=== PATIENT | female | born 1960 | race Caucasian/White ===

== ENCOUNTER 2017-06-23 07:54 | Inpatient (IN) | payer MEDICAID ==
[~2017-06-23 07:54] MED LIST: MORPHINE SULFATE 15 MG TABLET.SA PO PRN; RINGER'S SOLUTION,LACTATED 1,000 ML IV PRN; ROPIVACAINE HCL/PF 100 MG, EPINEPHrine 0.2 MG, KETOROLAC TROMETHAMINE 30 MG in NORMAL S... IJ PRN; TRANEXAMIC ACID 1,000 MG in NORMAL SALINE 100 ML IV PRN; ceFAZolin SODIUM 1 GM VIAL IV PRN
--- NOTE | 2017-06-23 09:56 | PREOP NOTE ---
Preoperative Progress Note - Preoperative Changes Changes to Preop Condition?: No Changes
[2017-06-23] MEDS ORDERED: RINGER'S SOLUTION,LACTATED 1,000 ML IV ONE ×3 (10:10→11:58)
[2017-06-23] MEDS ORDERED: ONDANSETRON HCL/PF 2 MG/ML VIAL IV PRN (12:01)
[2017-06-23] MEDS ORDERED: ZOLPIDEM TARTRATE 5 MG TABLET PO PRN (12:01)
[2017-06-23] MEDS ORDERED: MAGNESIUM HYDROXIDE 30 ML UDC PO PRN (12:01)
[2017-06-23] MEDS ORDERED: HYDROmorphone HCL 1 MG/ML DISP.SYRIN IV PRN (12:01)
[2017-06-23] MEDS ORDERED: MAG HYDROX/ALUMINUM HYD/SIMETH 30 ML UDC PO PRN (12:01)
[2017-06-23] MEDS ORDERED: PROMETHAZINE HCL 5 MG in DEXTROSE 5 % IN WATER 50 ML IV PRN ×2 (12:01)
[2017-06-23] MEDS ORDERED: diphenhydrAMINE HCL 50 MG/ML VIAL IV PRN (12:01)
[2017-06-23] MEDS ORDERED: ALBUTEROL SULFATE 2.5 MG/0.5 ML VIAL.NEB IH PRN (12:03)
[2017-06-23] MEDS ORDERED: hydrOXYzine PAMOATE 25 MG CAPSULE PO PRN (12:03)
--- NOTE | 2017-06-23 12:06 | OR ---
Operative Report - Dictated Report Narrative: Date: 06/23/2017 Preoperative diagnosis: Right Knee degenerative joint disease. Postoperative diagnosis: Right Knee degenerative joint disease. Procedure: Right Total knee arthroplasty. Surgeon: Viral Mays M.D. Plant Operations Worker: Franco Ridley PA-C Anesthesia: Spinal with regional block and local periarticular joint injection. Complications: None Specimens: Bone for disposal. Estimated blood loss: Minimal. Tourniquet time: 68 Minutes at 325 millimeters of mercury. Retained implants: Depuy Attune size 5 narrow right lugged cemented posterior stabilized femoral component. Size 5 fixed-bearing cemented tibial platform. 5 by 7 millimeter posterior stabilized cross-linked tibial insert. 35 millimeter medialized patella button. Indications: Mrs. Bee is a 57-year-old female who has had long-standing right knee pain. She previously underwent left total knee arthroplasty and did well. This patient was followed in my clinic for period of time with significant complaints of right knee pain consistent with arthritic changes. She had failed conservative measures including, but not limited to, activity modification, passage of time, medications, and other conservative measures. Patient wished to proceed with surgical treatment. The risks, benefits, and alternatives were discussed in clinic. The risks of , blood clots, bleeding, infection, nerve/tendon blood vessel/ injury, malposition of components, intraoperative fracture, postoperative limited range of motion, persistent pain, failure of components, and need for additional procedures. Patient wished to proceed consent was obtained after answering all questions. Procedure: After marking the correct extremity on the floor, the patient was taken to the operating room. A timeout was performed. IV antibiotics consisting of Ancef were administered prior to the procedure. A regional followed by spinal anesthetic was induced by anesthesia, per my request, on the operative table with all bony prominences well-padded. Leyva catheter was placed, and a bump was placed under the operative side buttock. SCDs and PACO hose were utilized on the nonoperative leg. A well-padded tourniquet was applied to the operative thigh. The operative leg was then pre-scrubbed with alcoho,l prepped, and draped in a standard sterile fashion. After exsanguinating the extremity with an Esmarch bandage, the tourniquet was inflated. After marking out the anterior knee for standard incision centered over the patella, the skin was incised and dissected down to the joint retinaculum. The joint retinaculum was marked out as well as the horizontal axis of the patella, and a standard medial parapatellar arthrotomy was then made. The most proximal aspect of the quadriceps tendon and the patella tendon insertion were protected from release. A partial synovectomy was performed as well as a resection of the infrapatellar fat pad. The distal femoral fat pad proximal to the trochlea was also resected using cautery. The soft tissues were elevated off the medial aspect of the proximal tibia using a Cotter elevator ensuring that we did not transect the medial collateral ligament. Upon initial evaluation range of motion was approximately 10 degrees to 130 degrees of flexion. There were signs of advanced arthrosis in the medial and patellofemoral joint spaces. There were large marginal osteophytes which were removed with a rongeur. The knee was hyperflexed and the patella was tucked laterally. Protecting the surrounding soft tissues with Homans, an entry drill was placed down the femoral canal using Whitesides line for guidance into the entry point. The intramedullary femoral alignment mariana was utilized in order to cut the distal femur in 5 degrees of valgus resecting 10 millimeters of bone. Next the distal femur was sized to a size 5 narrow. A posterior referencing guide was utilized to place the distal femoral cutting block in 3 degrees of external rotation. This was pinned into place. The rotation was confirmed both visually and based on anatomic landmarks. The 4 in 1 cutting jig of the appropriate size was utilized in order to make all bony cuts. The angle wing was used to ensure no notching. Retractors were utilized in order to protect surrounding soft tissues. This cut did not result in any excessive notching. We then cut the box centered over the distal femur. This allowed for resection of the anterior and posterior cruciate ligaments. I then turned my attention to the preparation of the tibia. Using an extra medullary tibial alignment mariana, 2 millimeters of bone was resected off the medial articular surface. This was made perpendicular to the mechanical axis of the joint with the alignment mariana centered over the ankle mortise. The alignment mariana was checked and was noted to be parallel to the mechanical axis, centered over the medial one third of the tibial tubercle, paralleling the anterior surface of the tibia. We then turned our attention to the remaining meniscus and soft tissues. These were removed while protecting the surrounding ligaments and soft tissues. The marginal osteophytes off the anterior, posterior, medial, lateral aspects of the femur and tibia were removed. The tibia was sized out to a size 5. Next the tibia was drilled and punched in an externally rotated position. Next the trial femur and a series of tibial inserts were utilized in order to allow for full extension and maximal flexion. It was found that a 7 millimeter insert gave the best range of motion and stability at multiple flexion points as well as at full extension there was less than 2 mm of gapping both medially and laterally. There is minimal anterior translation with the knee at 90 degrees of flexion and no signs of being able to dislocate the knee. The patella was then prepared. The initial thickness was 20 millimeters. This was reamed down to 11 millimeters parallel to the anterior surface of the patella. It was sized out to a size 35 medialized patella button. This was then drilled and trialed. Without any medial restraint the patella tracked appropriately and did not sublux or dislocate. At this point, it was felt these were the appropriate sized implants, and all trials were removed. The standard periarticular joint injection consisting of ropivacaine, Toradol, and epinephrine were injected into the periarticular joint tissues. The bony surfaces were thoroughly irrigated with a pulsatile- suction saline irrigation device. A bone plug from the prior resected anterior chamfer cut was placed into the drill hole at the distal femur. The bony surfaces were then dried in preparation for placement of the implants. The cement was vacuum mixed per the case consultant's instructions. The cement was placed on the dry bony surfaces and posterior aspect of the implants. The implants were impacted into place, removing all extruded cement. At this point anesthesia administered tranexamic acid per protocol intravenously. The knee was placed in extension with axial loading with the trial insert while the cement cured. Once the cement cured, all remaining extruded cement was removed. The knee was placed through a range of motion with the trial insert to ensure appropriate range of motion and stability. Final range of motion was approximately 0 to 130 degrees. The knee was again thoroughly irrigated with pulsatile saline lavage. The final polyethylene insert was then impacted into place ensuring no retained soft tissues. The remaining periarticular joint injection was injected. A medium Hemovac drain was placed exiting superior laterally. The knee was then placed over a triangle and the arthrotomy was closed with interrupted #1 Vicryl after thoroughly irrigating the joint. The deep and subcutaneous tissues were closed with interrupted 0 and 3-0 Vicryl respectively. Skin was closed with a running subcutaneous 3-0 Monocryl and Prineo Dermabond dressing. 4 x 4's, Sof-Rol, and a full leg Angel wrap were applied. All sponge, needle, blade, and instrument counts were correct prior to closing the wounds. Postoperative condition: The patient was awoken and transferred to the postanesthesia care unit in stable condition. Plan is to be admitted to the inpatient medical/surgical floor postoperatively for 24 hours of IV antibiotics , physical therapy, occupational therapy, and medical comanagement. Patient will be weightbearing as tolerated with range of motion as tolerated. DVT prophylaxis will be with SCDs, PACO hose, and pharmacological anticoagulation. Anticipated hospital stay is approximately 2-4 days.
[2017-06-23] MEDS: RINGER'S SOLUTION,LACTATED 1,000 ML IV PRN ×2 (12:59→19:00)
[2017-06-23] MEDS: KETOROLAC TROMETHAMINE 15 MG/ML VIAL IV SCH ×2 (13:13→19:02)
[2017-06-23] MEDS: GABAPENTIN 300 MG CAPSULE PO SCH ×2 (13:18→20:55)
[2017-06-23] MEDS: ceFAZolin SODIUM 1 GM in DEXTROSE 5 % IN WATER 100 ML IV SCH ×4 (15:08→21:01)
[2017-06-23] MEDS: oxyCODONE HCL 5 MG TABLET PO PRN (16:51)
[2017-06-23] MEDS: FLUTICASONE/SALMETEROL 14 PUFF DISK.W.DEV IH SCH (20:54)
[2017-06-23] MEDS: MORPHINE SULFATE 15 MG TABLET.SA PO SCH (20:55)
[2017-06-23] MEDS: OXYBUTYNIN CHLORIDE 5 MG TABLET PO SCH (20:56)
[2017-06-23] MEDS: SENNOSIDES/DOCUSATE SODIUM 1 TAB TABLET PO SCH (20:56)
[2017-06-23] MEDS: METOPROLOL TARTRATE 50 MG TABLET PO SCH (20:56)
[2017-06-23] MEDS: busPIRone HCL 5 MG TABLET PO SCH (20:57)
[2017-06-23] MEDS: QUEtiapine FUMARATE 100 MG, QUEtiapine FUMARATE 50 MG PO SCH ×2 (20:57)
[2017-06-23] MEDS: LISINOPRIL 20 MG TABLET PO SCH (20:58)
[2017-06-23] MEDS ORDERED: QUEtiapine FUMARATE 100 MG TABLET PO SCH (21:00)
[2017-06-24] MEDS: RINGER'S SOLUTION,LACTATED 1,000 ML IV PRN (02:05)
[2017-06-24] MEDS: KETOROLAC TROMETHAMINE 15 MG/ML VIAL IV SCH ×4 (02:06→19:00)
[2017-06-24] MEDS: ceFAZolin SODIUM 1 GM in DEXTROSE 5 % IN WATER 100 ML IV SCH ×2 (04:58)
[2017-06-24 06:02] LABS: Hematocrit 35.4 % (37.0-47.0); Hemoglobin 11.8 gm/dL (12.5-16.0); Mean Cell Volume 96.5 fl (78-100); Mean Corpuscular Hemoglobin 32.2 pg (27-31); Mean Corpuscular Hgb Conc 33.3 g/dl (32-36); Mean Platelet Volume 9.5 fl (6.0-9.5); Platelet Count 129 K/mm3 (150-450); Red Blood Count 3.67 M/mm3 (4.2-5.4); Red Cell Distribution Width 13.8 % (11.5-14.0); White Blood Count 7.3 K/mm3 (4.0-10.5)
[2017-06-24 06:14] LABS: Anion Gap 10.7 mmol/L (6.8-13.8); BUN/Creatinine Ratio 21.7 (9.0-21.6); Calcium * 8.8 mg/dL (7.9-10.9); Carbon Dioxide 29.1 mmol/L (24-32.6); Estimated Creat Clear 86.2; Potassium 3.8 mmol/L (3.4-4.6)
[2017-06-24] MEDS: PANTOPRAZOLE SODIUM 20 MG TABLET.DR PO SCH (07:10)
[2017-06-24] MEDS: GABAPENTIN 300 MG CAPSULE PO SCH ×3 (07:10→20:52)
[2017-06-24] MEDS: LEVOTHYROXINE SODIUM 50 MCG TABLET PO SCH (07:11)
--- NOTE | 2017-06-24 07:18 | OR ---
Anesthesia Procedure Note - Anesthesia Procedure Note Narrative: Vital Signs - Last Taken Temp 36.5 C 06/23/17 22:23 Pulse 61 06/24/17 02:45 Resp 16 06/24/17 02:45 BP 121/84 06/24/17 02:45 Pulse Ox 97 06/24/17 02:45 O2 Oxygen Delivery Method Nasal Cannula 06/24/17 07:14 ANESTHESIA PROCEDURE NOTE Date of procedure: 06/23/2017. Time of procedure: 1020. Performed by: Naldo Jacome CRNA Textile Designer: Brittany Baca RN . Preprocedure diagnosis: Postoperative analgesia. Right total knee arthroplasty. Right knee DJD. Post procedure diagnosis: Same. Procedure: Right ultrasound-guided femoral nerve block. Indications: Postoperative analgesia. Findings: Patient placed in a supine position. Right femoral area prepped with ChloraPrep. Right femoral nerve identified with ultrasound and a nerve stimulator. 22-gauge 2 inch Stimuplex regional block needle was used to inject a total of 30 mL of 0.25% Marcaine with epinephrine 1 200,000 around the right femoral nerve. Images retained in radiology database. Regional block needle was removed intact. EBL: Minimal. Fluids: N/A. Specimen: N/A. Post procedure condition: The patient tolerated the procedure well. No complications were noted. Thank you for this consultation Naldo Jacome CRNA
[2017-06-24] MEDS: oxyCODONE HCL 5 MG TABLET PO PRN ×2 (07:21→11:22)
--- NOTE | 2017-06-24 07:56 | PN ---
Subjective - Date and Time Seen Date: 06/24/17 Time: 07:55 Subjective Narrative: Subjective: Reports no concerns. Was able to get to the chair with therapy. Pain is well-controlled. Voiding without any complications. Tolerating by mouth intake. Denies any nausea or vomiting. Denies calf pain. Slept well. Physical exam: Alert and oriented to person, place and time Right lower Extremity: Palpable dorsalis pedis pulse. Sensation grossly intact to light touch. Dressings clean and dry. Able to flex and extend ankle and toes. No excessive drainage. Calf and thigh are soft and nontender. Assessment: Postop day 1 status post right total knee arthroplasty. Plan: Continue with physical and occupational therapy weightbearing as tolerated. Continue with anticoagulation. 24 hours postoperative prophylactic antibiotics. Pain control with goal to rely on oral medications. Continue bowel regimen. Will need 6 weeks with walker or assitive device to protect joint while ambulating during the recovery process. Discharge planning. Discontinue drain and Leyva catheter. Repeat labs in a.m. Objective - Vitals Vitals: Last Vital Signs Temp 37 C 06/24/17 07:49 Pulse 68 06/24/17 07:49 Resp 20 06/24/17 07:49 BP 126/86 06/24/17 07:49 Pulse Ox 98 06/24/17 07:49 - Abnormal Lab Findings Abnormal Lab Findings: Abnormal Lab Results 06/24/17 06/24/17 Range/Units 05:40 05:40 RBC 3.67 L (4.2-5.4) M/mm3 Hgb 11.8 L (12.5-16.0) gm/dL Hct 35.4 L (37.0-47.0) % MCH 32.2 H (27-31) pg Plt Count 129 L (150-450) K/mm3 BUN/Creatinine Ratio 21.7 H (9.0-21.6) Random Glucose 168 H (70-110) mg/dL Cauti Physician Documentation - Urinary Catheter Management Uretheral (Leyva) Date of Insertion: 06/23/17 Time of Insertion: 10:35 Date of Removal: 06/24/17 Time of Removal: 07:24 Assessment/Plan - Problems/Diagnosis (1) Acute blood loss anemia Problem: Acute (2) Hypoxemia Problem: Acute (3) S/P total knee arthroplasty Problem: Acute Qualifiers: Laterality: right Qualified Code(s): Z96.651 - Presence of right artificial knee joint (4) COPD (chronic obstructive pulmonary disease) Problem: Chronic (5) Hypertension Problem: Chronic (6) Tobacco abuse Problem: Chronic (7) Anxiety Problem: Chronic (8) Bipolar 1 disorder Problem: Chronic (9) Hepatitis C Problem: Chronic
[2017-06-24] MEDS: FLUTICASONE/SALMETEROL 14 PUFF DISK.W.DEV IH SCH ×2 (09:09→20:50)
[2017-06-24] MEDS: LISINOPRIL 20 MG TABLET PO SCH ×2 (09:14→20:55)
[2017-06-24] MEDS: MORPHINE SULFATE 15 MG TABLET.SA PO SCH ×2 (09:14→20:51)
[2017-06-24] MEDS: busPIRone HCL 5 MG TABLET PO SCH ×2 (09:14→20:53)
[2017-06-24] MEDS: amLODIPine BESYLATE 5 MG TABLET PO SCH (09:14)
[2017-06-24] MEDS: PRENATAL VITS96/IRON FUM/FOLIC 1 TAB TABLET PO SCH (09:14)
[2017-06-24] MEDS: THIAMINE HCL 100 MG TABLET PO SCH (09:14)
[2017-06-24] MEDS: METOPROLOL TARTRATE 50 MG TABLET PO SCH ×2 (09:15→20:56)
[2017-06-24] MEDS: FLUoxetine HCL 20 MG CAPSULE PO SCH (09:15)
[2017-06-24] MEDS: OXYBUTYNIN CHLORIDE 5 MG TABLET PO SCH ×2 (09:15→20:53)
[2017-06-24] MEDS: ENOXAPARIN SODIUM 40 MG/0.4 ML SYRG SC SCH (11:06)
[2017-06-24] MEDS: SENNOSIDES/DOCUSATE SODIUM 1 TAB TABLET PO SCH (20:52)
[2017-06-24] MEDS: QUEtiapine FUMARATE 100 MG, QUEtiapine FUMARATE 50 MG PO SCH ×2 (20:54)
[2017-06-24] MEDS ORDERED: NORMAL SALINE 500 ML IV ONE (22:30)
[2017-06-25] MEDS: KETOROLAC TROMETHAMINE 15 MG/ML VIAL IV SCH ×2 (01:26→06:42)
[2017-06-25 06:27] LABS: Hematocrit 30.1 % (37.0-47.0); Hemoglobin 9.9 gm/dL (12.5-16.0); Mean Corpuscular Hemoglobin 32.2 pg (27-31); Mean Corpuscular Hgb Conc 32.9 g/dl (32-36); Mean Platelet Volume 10.2 fl (6.0-9.5); Platelet Count 109 K/mm3 (150-450); Red Blood Count 3.07 M/mm3 (4.2-5.4); Red Cell Distribution Width 13.6 % (11.5-14.0); White Blood Count 7.5 K/mm3 (4.0-10.5)
[2017-06-25 06:30] LABS: Anion Gap 9.6 mmol/L (6.8-13.8); Calcium * 8.7 mg/dL (7.9-10.9); Potassium 3.6 mmol/L (3.4-4.6)
[2017-06-25] MEDS: GABAPENTIN 300 MG CAPSULE PO SCH ×4 (06:42→22:56)
[2017-06-25] MEDS: PANTOPRAZOLE SODIUM 20 MG TABLET.DR PO SCH (06:42)
[2017-06-25] MEDS: LEVOTHYROXINE SODIUM 50 MCG TABLET PO SCH (06:42)
[2017-06-25] MEDS: FLUTICASONE/SALMETEROL 14 PUFF DISK.W.DEV IH SCH ×3 (08:58→23:01)
[2017-06-25] MEDS: busPIRone HCL 5 MG TABLET PO SCH ×3 (08:58→22:56)
[2017-06-25] MEDS: METOPROLOL TARTRATE 50 MG TABLET PO SCH ×3 (08:58→22:58)
[2017-06-25] MEDS: OXYBUTYNIN CHLORIDE 5 MG TABLET PO SCH ×3 (08:58→23:05)
[2017-06-25] MEDS: LISINOPRIL 20 MG TABLET PO SCH (08:59)
[2017-06-25] MEDS: THIAMINE HCL 100 MG TABLET PO SCH (08:59)
[2017-06-25] MEDS: amLODIPine BESYLATE 5 MG TABLET PO SCH (08:59)
[2017-06-25] MEDS: PRENATAL VITS96/IRON FUM/FOLIC 1 TAB TABLET PO SCH (08:59)
[2017-06-25] MEDS: FLUoxetine HCL 20 MG CAPSULE PO SCH (08:59)
[2017-06-25] MEDS: MORPHINE SULFATE 15 MG TABLET.SA PO SCH ×3 (08:59→22:54)
--- NOTE | 2017-06-25 09:25 | PN ---
Subjective - Date and Time Seen Date: 06/25/17 Time: 09:21 Subjective Narrative: Subjective: Reports increased pain and difficulty voiding last PM. Was able to walk in the cadet with therapy. Required straight cath x 1 last night. Tolerating by mouth intake. Denies any nausea or vomiting. Denies calf pain. Physical exam: Alert and oriented to person, place and time Right lower Extremity: Dressings clean and dry. Able to flex and extend ankle and toes. No excessive drainage. Calf and thigh are soft and nontender. Assessment: Postop day 2 status post right total knee arthroplasty. Plan: Continue with physical and occupational therapy weightbearing as tolerated. Continue with anticoagulation. Encourage fluids. Pain control with goal to rely on oral medications. Continue bowel regimen. Will need 6 weeks with walker or assitive device to protect joint while ambulating during the recovery process. Discharge planning. Repeat labs in a.m. Objective - Vitals Vitals: Last Vital Signs Temp 36.9 C 06/25/17 06:25 Pulse 87 06/25/17 08:59 Resp 18 06/25/17 06:25 BP 99/66 06/25/17 08:59 Pulse Ox 91 06/25/17 06:25 - Abnormal Lab Findings Abnormal Lab Findings: Abnormal Lab Results 06/25/17 06/25/17 Range/Units 06:08 06:08 RBC 3.07 L (4.2-5.4) M/mm3 Hgb 9.9 L (12.5-16.0) gm/dL Hct 30.1 L (37.0-47.0) % MCH 32.2 H (27-31) pg Plt Count 109 L (150-450) K/mm3 MPV 10.2 H (6.0-9.5) fl BUN 25 H D (3-23) mg/dL BUN/Creatinine Ratio 26.0 H (9.0-21.6) Cauti Physician Documentation - Urinary Catheter Management Uretheral (Leyva) Date of Insertion: 06/23/17 Time of Insertion: 10:35 Date of Removal: 06/24/17 Time of Removal: 07:24 Assessment/Plan - Problems/Diagnosis (1) Acute blood loss anemia Problem: Acute (2) Hypoxemia Problem: Acute (3) S/P total knee arthroplasty Problem: Acute Qualifiers: Laterality: right Qualified Code(s): Z96.651 - Presence of right artificial knee joint (4) COPD (chronic obstructive pulmonary disease) Problem: Chronic (5) Hypertension Problem: Chronic (6) Tobacco abuse Problem: Chronic (7) Anxiety Problem: Chronic (8) Bipolar 1 disorder Problem: Chronic (9) Hepatitis C Problem: Chronic (10) Urinary retention Problem: Acute
[2017-06-25] MEDS: ENOXAPARIN SODIUM 40 MG/0.4 ML SYRG SC SCH (11:29)
[2017-06-25] MEDS ORDERED: FUROSEMIDE 10 MG/ML VIAL IV SCH (12:08)
[2017-06-25] MEDS ORDERED: FUROSEMIDE 10 MG/ML VIAL IV ONE (12:25)
[2017-06-25] MEDS ORDERED: NORMAL SALINE 250 ML IV ONE (15:22)
[2017-06-25] MEDS: NICOTINE 14 MG PATC TD SCH (15:30)
[2017-06-25] MEDS: LORazepam 2 MG/ML DISP.SYRIN IV ONE ×2 (15:32→16:54)
[2017-06-25] MEDS: NORMAL SALINE 1,000 ML IV PRN ×2 (15:41→21:22)
[2017-06-25] MEDS ORDERED: ALBUTEROL SULFATE 2.5 MG/0.5 ML VIAL.NEB IH PRN (16:58)
[2017-06-25] MEDS ORDERED: LORazepam 2 MG/ML DISP.SYRIN IV SCH (17:30)
[2017-06-25] MEDS: MULTIVIT INFUSN,ADULT 4,VIT K 10 ML, THIAMINE HCL 100 MG in NORMAL SALINE 1,000 ML IV SCH (17:56)
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
[2017-06-25] MEDS: QUEtiapine FUMARATE 100 MG, QUEtiapine FUMARATE 50 MG PO SCH ×4 (21:26→22:59)
[2017-06-25] MEDS: SENNOSIDES/DOCUSATE SODIUM 1 TAB TABLET PO SCH ×2 (21:26→23:00)
[2017-06-26] MEDS: NORMAL SALINE 1,000 ML IV PRN ×2 (05:27→16:47)
[2017-06-26 06:09] LABS: Anion Gap 10.7 mmol/L (6.8-13.8); BUN/Creatinine Ratio 28.6 (9.0-21.6); Calcium * 8.4 mg/dL (7.9-10.9); Carbon Dioxide 26.4 mmol/L (24-32.6); Estimated Creat Clear 94.5; Potassium 4.1 mmol/L (3.4-4.6)
[2017-06-26] MEDS: busPIRone HCL 5 MG TABLET PO SCH ×3 (06:28→20:29)
[2017-06-26] MEDS: METOPROLOL TARTRATE 50 MG TABLET PO SCH (06:28)
[2017-06-26] MEDS: GABAPENTIN 300 MG CAPSULE PO SCH ×4 (06:28→20:29)
[2017-06-26] MEDS: LEVOTHYROXINE SODIUM 50 MCG TABLET PO SCH (06:29)
[2017-06-26] MEDS: PANTOPRAZOLE SODIUM 20 MG TABLET.DR PO SCH (06:29)
[2017-06-26] MEDS: oxyCODONE HCL 5 MG TABLET PO PRN ×2 (06:32→12:40)
--- NOTE | 2017-06-26 07:54 | PN ---
Subjective - Date and Time Seen Date: 06/26/17 Time: 07:51 Subjective Narrative: Subjective: Reports stable pain, voiding easier. Was able to walk in the cadet with therapy. Off and on Oxygen. Tolerating by mouth intake. Denies any nausea or vomiting. Denies calf pain. Physical exam: Alert and oriented to person, place and time Right lower Extremity: Dressings clean and dry. Able to flex and extend ankle and toes. No excessive drainage. Calf and thigh are soft and nontender. Assessment: Postop day 3 status post right total knee arthroplasty. Plan: Continue with physical and occupational therapy weightbearing as tolerated. Continue with anticoagulation. Encourage fluids. IM consulted and assisting in medical management of alcohol withdrawal, and medical issues. Pain control with goal to rely on oral medications. Continue bowel regimen. Will need 6 weeks with walker or assitive device to protect joint while ambulating during the recovery process. Discharge planning - goal for tomorrow if stable. Objective - Vitals Vitals: Last Vital Signs Temp 35.8 C L 06/26/17 06:24 Pulse 66 06/26/17 06:24 Resp 16 06/26/17 06:24 BP 106/69 06/26/17 06:24 Pulse Ox 81 L 06/26/17 07:20 - Abnormal Lab Findings Abnormal Lab Findings: Abnormal Lab Results 06/26/17 Range/Units 05:50 BUN/Creatinine Ratio 28.6 H (9.0-21.6) Cauti Physician Documentation - Urinary Catheter Management Uretheral (Leyva) Date of Insertion: 06/23/17 Time of Insertion: 10:35 Date of Removal: 06/24/17 Time of Removal: 07:24 Assessment/Plan - Problems/Diagnosis (1) Acute blood loss anemia Problem: Acute (2) Hypoxemia Problem: Acute (3) S/P total knee arthroplasty Problem: Acute Qualifiers: Laterality: right Qualified Code(s): Z96.651 - Presence of right artificial knee joint (4) COPD (chronic obstructive pulmonary disease) Problem: Chronic (5) Hypertension Problem: Chronic (6) Tobacco abuse Problem: Chronic (7) Anxiety Problem: Chronic (8) Bipolar 1 disorder Problem: Chronic (9) Hepatitis C Problem: Chronic (10) Urinary retention Problem: Resolved (11) Nicotine dependence Problem: Chronic Qualifiers: Nicotine product type: cigarettes (12) Alcohol dependence Problem: Chronic (13) Alcohol withdrawal Problem: Acute Qualifiers: Complication of substance-induced condition: with perceptual disturbance Qualified Code(s): F10.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
[2017-06-26 08:07] LABS: Albumin * 2.1 gm/dl (3.4-5.0); Bilirubin Direct 0.3 mg/dL (0.0-0.3); Bilirubin, Total 0.6 mg/dL (0.0-1.1); Bilirubin,Indirect 0.3 mg/dL (0.1-0.7); Total Protein 5.3 gm/dL (6.2-8.2)
--- NOTE | 2017-06-26 08:26 | PN ---
Subjective - Date and Time Seen Date: 06/26/17 Time: 08:21 Subjective Narrative: Patient says she no longer drinks and did not answer when her last drink was. She is more awake. Has been having urinary retention. Objective - Review of Systems Generalized/Overall Review: Reports: Weight loss. Denies: Chills, Fever Respiratory: Denies: Cough, Shortness of Breath Cardiac: Denies: Chest Pain, Edema, Palpitations Abdominal: Denies: Nausea, Vomiting Genitourinary Symptoms: Reports: Retention. Denies: Urgency, Frequency Musculoskeletal Complaints: Reports: Joint Pain - Vitals Vitals: Last Vital Signs Temp 35.8 C L 06/26/17 06:24 Pulse 66 06/26/17 06:24 Resp 16 06/26/17 06:24 BP 106/69 06/26/17 06:24 Pulse Ox 81 L 06/26/17 07:20 - Abnormal Lab Findings Abnormal Lab Findings: Abnormal Lab Results 06/26/17 06/26/17 Range/Units 05:45 05:50 BUN/Creatinine Ratio 28.6 H (9.0-21.6) ALT 16 L (19-67) U/L Total Protein 5.3 L (6.2-8.2) gm/dL Albumin 2.1 L (3.4-5.0) gm/dl - Exam Constitutional: Present: Alert, Oriented x3, Cooperative ENT Exam: Present: hearing grossly normal Neck: Present: supple Breasts: Present: Exam deferred Respiratory: Present: decreased breath sounds, No rales, other - occasional wheezing Abdomen: Present: Normal bowel sounds, soft, nontender, nondistended Extremity: Present: no pedal edema, no calf tenderness Cauti Physician Documentation - Urinary Catheter Management Uretheral (Leyva) Date of Insertion: 06/23/17 Time of Insertion: 10:35 Date of Removal: 06/24/17 Time of Removal: 07:24 Assessment/Plan - Problems/Diagnosis (1) S/P total knee arthroplasty Problem: Acute Qualifiers: Laterality: right Qualified Code(s): Z96.651 - Presence of right artificial knee joint Narrative: continue PT/OT (2) Alcohol dependence Problem: Chronic (3) COPD (chronic obstructive pulmonary disease) Problem: Chronic Narrative: will do RTC breathing today. 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 her amlodipine and lisinopril has been stopped yesterday.. (8) Urinary retention Problem: Acute Narrative: likely due to narcotic pain meds. she is on oxybutinin BID for UI which can cause hesitancy and retention and will hold that for now.
[2017-06-26] MEDS: ALBUTEROL SULFATE 2.5 MG/0.5 ML VIAL.NEB IH PRN ×3 (08:27→16:21)
[2017-06-26] MEDS: FLUoxetine HCL 20 MG CAPSULE PO SCH (09:17)
[2017-06-26] MEDS: FLUTICASONE/SALMETEROL 14 PUFF DISK.W.DEV IH SCH ×2 (09:18→20:30)
[2017-06-26] MEDS: METOPROLOL TARTRATE 25 MG TABLET PO SCH ×2 (09:21→20:30)
[2017-06-26] MEDS: MORPHINE SULFATE 15 MG TABLET.SA PO SCH ×2 (09:21→20:28)
[2017-06-26] MEDS: ENOXAPARIN SODIUM 40 MG/0.4 ML SYRG SC SCH (11:17)
[2017-06-26] MEDS: NICOTINE 14 MG PATC TD SCH (14:50)
[2017-06-26] MEDS: MULTIVIT INFUSN,ADULT 4,VIT K 10 ML, THIAMINE HCL 100 MG in NORMAL SALINE 1,000 ML IV SCH (18:20)
[2017-06-26] MEDS: LORazepam 1 MG TABLET PO PRN (20:28)
[2017-06-26] MEDS: SENNOSIDES/DOCUSATE SODIUM 1 TAB TABLET PO SCH (20:31)
[2017-06-26] MEDS: QUEtiapine FUMARATE 100 MG, QUEtiapine FUMARATE 50 MG PO SCH ×2 (20:32)
[2017-06-26] MEDS: ACETAMINOPHEN 500 MG TABLET PO PRN (21:51)
[2017-06-27] MEDS: NORMAL SALINE 1,000 ML IV PRN (00:56)
[2017-06-27] MEDS: GABAPENTIN 300 MG CAPSULE PO SCH ×3 (06:50→20:27)
[2017-06-27] MEDS: PANTOPRAZOLE SODIUM 20 MG TABLET.DR PO SCH (06:51)
[2017-06-27] MEDS: LEVOTHYROXINE SODIUM 50 MCG TABLET PO SCH (06:51)
[2017-06-27] MEDS: oxyCODONE HCL 5 MG TABLET PO PRN ×2 (06:56→16:50)
[2017-06-27] MEDS: LORazepam 1 MG TABLET PO PRN (06:56)
--- NOTE | 2017-06-27 08:29 | PN ---
Subjective - Date and Time Seen Date: 06/27/17 Time: 08:19 Subjective Narrative: Patient says her leg hurts but when asked she says it above the knee and not the calf. She says they will walk again later. She is able to go and urinate by herself now. She is complaining of being weak. Objective - Review of Systems Generalized/Overall Review: Reports: Weakness. Denies: Chills, Fever EENTM: Reports: No Symptoms Reported Respiratory: Reports: Cough, Shortness of Breath. Denies: Wheezing Cardiac: Denies: Chest Pain, Edema, Palpitations Abdominal: Denies: Nausea, Vomiting Genitourinary Symptoms: Denies: Urgency, Frequency Musculoskeletal Complaints: Reports: Joint Pain - Vitals Vitals: Last Vital Signs Temp 35.8 C L 06/27/17 06:34 Pulse 82 06/27/17 06:34 Resp 18 06/27/17 06:34 BP 131/77 06/27/17 06:34 Pulse Ox 93 06/27/17 08:15 - Exam Constitutional: Present: Alert, Oriented x3, Cooperative ENT Exam: Present: hearing grossly normal Neck: Present: supple Breasts: Present: Exam deferred Respiratory: Present: decreased breath sounds, No rales, No wheezing Cardiovascular/Chest: Present: regular rate, rhythm, no JVD, no murmur Abdomen: Present: Normal bowel sounds, soft, nontender, nondistended Extremity: Present: no pedal edema, no calf tenderness Cauti Physician Documentation - Urinary Catheter Management Uretheral (Leyva) Date of Insertion: 06/23/17 Time of Insertion: 10:35 Date of Removal: 06/24/17 Time of Removal: 07:24 Assessment/Plan - Problems/Diagnosis (1) S/P total knee arthroplasty Problem: Acute Qualifiers: Laterality: right Qualified Code(s): Z96.651 - Presence of right artificial knee joint Narrative: doing PT/OT (2) Alcohol dependence Problem: Chronic Narrative: encouraged to stop her habit (3) COPD (chronic obstructive pulmonary disease) Problem: Chronic Narrative: on nebs/inhalers. may need to go home on home O2. encouraged to stop smoking. ADDENDUM: Per nurse , patient has been desaturating- CXR done - right lower lobe infiltrates in superior segments, small pleural effusion, bronchitis, congestion vs pneumonitis. Will treat for HAP possible aspiration pneumonia with merem and Azithromyci for now. Will defer Vanco. Will do BC and sputum culture. 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
[2017-06-27] MEDS: busPIRone HCL 5 MG TABLET PO SCH ×2 (09:19→20:27)
[2017-06-27] MEDS: MORPHINE SULFATE 15 MG TABLET.SA PO SCH ×2 (09:19→20:26)
[2017-06-27] MEDS: FLUoxetine HCL 20 MG CAPSULE PO SCH (09:19)
[2017-06-27] MEDS: FLUTICASONE/SALMETEROL 14 PUFF DISK.W.DEV IH SCH ×2 (09:19→20:26)
[2017-06-27] MEDS: METOPROLOL TARTRATE 25 MG TABLET PO SCH ×2 (09:19→20:27)
[2017-06-27] MEDS: ENOXAPARIN SODIUM 40 MG/0.4 ML SYRG SC SCH (11:20)
--- NOTE | 2017-06-27 11:27 | PN ---
Subjective - Date and Time Seen Date: 06/27/17 Time: 11:23 Subjective Narrative: Subjective: She states that her pain is improving. She has been able to void without any complications. She has required 1-2 and sometimes up to 3 L of oxygen while she is sleeping and more recently with increased activity. Was able to walk in the cadet with therapy. Tolerating by mouth intake. Denies any nausea or vomiting. Denies calf pain. Physical exam: Alert and oriented to person, place and time Right lower Extremity: Dressings clean and dry. Able to flex and extend ankle and toes. No excessive drainage. Calf and thigh are soft and nontender. Assessment: Postop day 4 status post right total knee arthroplasty. Plan: Continue with physical and occupational therapy weightbearing as tolerated. Continue with anticoagulation. I appreciate the assistance with IM assisting in medical management of alcohol withdrawal, and medical issues. Pain control with goal to rely on oral medications. Continue bowel regimen. Will need 6 weeks with walker or assitive device to protect joint while ambulating during the recovery process. Discharge planning -she needs to be evaluated for home oxygen and as I feel she likely will need this distally to be approved prior to discharge which from our past experience may take 1-2 days. If she is medically stable and arranged for home oxygen, she can be discharged to home with home health. She'll receive 5 more days of Lovenox. She'll be sent home with 20 tablets of 15 mg morphine extended release twice a day, oxycodone 5 mg tabs 1-2 by mouth every 4-6 hours as needed number of 80 and be instructed on home Senokot and started daily aspirin 325 mg after finishing her Lovenox. Objective - Vitals Vitals: Last Vital Signs Temp 36.2 C L 06/27/17 10:25 Pulse 75 06/27/17 10:25 Resp 18 06/27/17 10:25 BP 122/79 06/27/17 10:25 Pulse Ox 92 06/27/17 10:25 Cauti Physician Documentation - Urinary Catheter Management Uretheral (Leyva) Date of Insertion: 06/23/17 Time of Insertion: 10:35 Date of Removal: 06/24/17 Time of Removal: 07:24 Assessment/Plan - Problems/Diagnosis (1) Acute blood loss anemia Problem: Acute (2) Hypoxemia Problem: Acute (3) S/P total knee arthroplasty Problem: Acute Qualifiers: Laterality: right Qualified Code(s): Z96.651 - Presence of right artificial knee joint (4) COPD (chronic obstructive pulmonary disease) Problem: Chronic (5) Hypertension Problem: Chronic (6) Tobacco abuse Problem: Chronic (7) Anxiety Problem: Chronic (8) Bipolar 1 disorder Problem: Chronic (9) Hepatitis C Problem: Chronic (10) Urinary retention Problem: Resolved (11) Nicotine dependence Problem: Chronic Qualifiers: Nicotine product type: cigarettes (12) Alcohol dependence Problem: Chronic (13) Alcohol withdrawal Problem: Acute Qualifiers: Complication of substance-induced condition: with perceptual disturbance Qualified Code(s): F10.232 - 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
[2017-06-27] MEDS: ALBUTEROL SULFATE/IPRATROPIUM 3 ML NEBU IH SCH ×2 (14:03→18:10)
[2017-06-27] MEDS ORDERED: AZITHROMYCIN 250 MG TABLET PO ONE (14:23)
[2017-06-27] MEDS ORDERED: CEFEPIME HCL 1 GM in DEXTROSE 5 % IN WATER 100 ML IV SCH ×2 (14:30)
[2017-06-27] MEDS: NICOTINE 14 MG PATC TD SCH (15:41)
[2017-06-27] MEDS: MEROPENEM 1 GM in NORMAL SALINE 100 ML IV SCH (16:11)
[2017-06-27] MEDS: MULTIVIT INFUSN,ADULT 4,VIT K 10 ML, THIAMINE HCL 100 MG in NORMAL SALINE 1,000 ML IV SCH (17:57)
[2017-06-27] MEDS: SACCHAROMYCES BOULARDII 250 MG CAPSULE PO SCH (20:26)
[2017-06-27] MEDS: SENNOSIDES/DOCUSATE SODIUM 1 TAB TABLET PO SCH (20:28)
[2017-06-27] MEDS: QUEtiapine FUMARATE 100 MG, QUEtiapine FUMARATE 50 MG PO SCH ×2 (20:28)
[2017-06-28] MEDS: MEROPENEM 1 GM in NORMAL SALINE 100 ML IV SCH ×2 (03:36→15:49)
[2017-06-28 05:05] LABS: Mean Cell Volume 95.2 fl (78-100); Mean Corpuscular Hemoglobin 31.7 pg (27-31); Mean Corpuscular Hgb Conc 33.3 g/dl (32-36); Mean Platelet Volume 9.7 fl (6.0-9.5); Neutrophil # 3.3 K/mm3 (1.3-6.0); Neutrophil % 69.9 % (42-75.0); Platelet Count 120 K/mm3 (150-450); Red Blood Count 2.52 M/mm3 (4.2-5.4); Red Cell Distribution Width 13.3 % (11.5-14.0); White Blood Count 4.7 K/mm3 (4.0-10.5)
[2017-06-28 05:19] LABS: INR 0.96 INR (0.90-1.10)
[2017-06-28 05:21] LABS: Anion Gap 10.7 mmol/L (6.8-13.8); Calcium * 8.5 mg/dL (7.9-10.9); Carbon Dioxide 25.9 mmol/L (24-32.6); Estimated Creat Clear 99.2; Potassium 3.6 mmol/L (3.4-4.6)
[2017-06-28] MEDS: ALBUTEROL SULFATE/IPRATROPIUM 3 ML NEBU IH SCH ×3 (06:08→18:10)
[2017-06-28] MEDS ORDERED: FERROUS SULFATE 325 MG TABLET PO SCH (06:15)
--- NOTE | 2017-06-28 06:48 | PN ---
Subjective - Date and Time Seen Date: 06/28/17 Time: 06:43 Subjective Narrative: States feels a whole lot better today than yesterday. No complaints overall though does have a cough and a little bit of right sided CP. Objective - Review of Systems Generalized/Overall Review: Reports: Weakness. Denies: Chills, Fever EENTM: Reports: No Symptoms Reported Respiratory: Reports: Cough Cardiac: Reports: Chest Pain Abdominal: Reports: No Symptoms Reported Genitourinary Symptoms: Reports: No Symptoms Reported Musculoskeletal Complaints: Reports: No Symptoms Reported Neurological: Reports: No Symptoms Reported Skin: Reports: No Symptoms Reported Endocrine: Reports: No Symptoms Reported - Vitals Vitals: Last Vital Signs Temp 36.5 C 06/28/17 06:22 Pulse 82 06/28/17 06:22 Resp 16 06/28/17 06:22 BP 143/84 06/28/17 06:22 Pulse Ox 100 06/28/17 06:22 - Abnormal Lab Findings Abnormal Lab Findings: Abnormal Lab Results 06/28/17 Range/Units 05:02 RBC 2.52 L (4.2-5.4) M/mm3 Hgb 8.0 L (12.5-16.0) gm/dL Hct 24.0 L D (37.0-47.0) % MCH 31.7 H (27-31) pg Plt Count 120 L (150-450) K/mm3 MPV 9.7 H (6.0-9.5) fl Immature Gran % (Auto) 0.60 H (0.001-0.429) % Lymphocytes % 15.0 L (20-51) % Monocytes % 11.1 H (0.0-9) % Eosinophils % 3.2 H (0.0-3.0) % Lymphocytes # 0.7 L (1.5-3.5) k/mm3 - Exam Constitutional: Present: Alert, Oriented x3, Cooperative, No distress ENT Exam: Present: hearing grossly normal Neck: Present: supple Respiratory: Present: no respiratory distress, no accessory muscle use, rales - right base Cardiovascular/Chest: Present: regular rate, rhythm, no murmur Abdomen: Present: Normal bowel sounds, soft, nontender, nondistended, no hepatospenomegaly Extremity: Present: no pedal edema, no calf tenderness Skin Exam: Present: normal color Neurologic: Present: normal mood/affect, oriented x 3 Appearance: Present: appropriate appearance, appropriate insight Eye contact: Present: cooperative, good eye contact, normal speech Thoughts: Present: normal thought pattern, no apparent hallucination Cauti Physician Documentation - Urinary Catheter Management Uretheral (Leyva) Urethral Indwelling: No Date of Insertion: 06/23/17 Time of Insertion: 10:35 Date of Removal: 06/24/17 Time of Removal: 07:24 Assessment/Plan - Problems/Diagnosis (1) RT midlung and lingular pneumonia Problem: Acute (2) Acute blood loss anemia Problem: Acute (3) Hypoxemia Problem: Acute (4) S/P total knee arthroplasty Problem: Acute Qualifiers: Laterality: right Qualified Code(s): Z96.651 - Presence of right artificial knee joint (5) COPD (chronic obstructive pulmonary disease) Problem: Chronic (6) Hypertension Problem: Chronic (7) Discharge planning issues Problem: Acute Narrative: new pneumonia - HAP, given location and EtOH and post op, most likely aspiration in nature as she does describe having a lot of reflux post op. Will continue to follow anemia, EtOH w/d concerns and how she responds to IV abx. If she continues to improve, consider changing to PO meds in a couple days with goal to discharge home on PO meds.
[2017-06-28] MEDS: PANTOPRAZOLE SODIUM 20 MG TABLET.DR PO SCH (06:55)
[2017-06-28] MEDS: oxyCODONE HCL 5 MG TABLET PO PRN (06:55)
[2017-06-28] MEDS: LEVOTHYROXINE SODIUM 50 MCG TABLET PO SCH (06:55)
[2017-06-28] MEDS: GABAPENTIN 300 MG CAPSULE PO SCH ×3 (06:55→20:17)
[2017-06-28] MEDS: busPIRone HCL 5 MG TABLET PO SCH ×2 (08:31→20:17)
[2017-06-28] MEDS: MORPHINE SULFATE 15 MG TABLET.SA PO SCH ×2 (08:31→20:21)
[2017-06-28] MEDS: FLUoxetine HCL 20 MG CAPSULE PO SCH (08:32)
[2017-06-28] MEDS: AZITHROMYCIN 250 MG TABLET PO SCH (08:32)
[2017-06-28] MEDS: SACCHAROMYCES BOULARDII 250 MG CAPSULE PO SCH ×2 (08:32→20:18)
[2017-06-28] MEDS: LISINOPRIL 20 MG TABLET PO SCH (08:32)
[2017-06-28] MEDS: METOPROLOL TARTRATE 25 MG TABLET PO SCH ×2 (08:32→20:18)
[2017-06-28] MEDS: FLUTICASONE/SALMETEROL 14 PUFF DISK.W.DEV IH SCH ×2 (08:34→20:17)
[2017-06-28] MEDS: ENOXAPARIN SODIUM 40 MG/0.4 ML SYRG SC SCH (11:27)
[2017-06-28] MEDS: NICOTINE 14 MG PATC TD SCH (15:36)
[2017-06-28] MEDS: MULTIVIT INFUSN,ADULT 4,VIT K 10 ML, THIAMINE HCL 100 MG in NORMAL SALINE 1,000 ML IV SCH (17:52)
[2017-06-28] MEDS: SENNOSIDES/DOCUSATE SODIUM 1 TAB TABLET PO SCH (20:18)
[2017-06-28] MEDS: QUEtiapine FUMARATE 100 MG, QUEtiapine FUMARATE 50 MG PO SCH ×2 (20:19)
[2017-06-29] MEDS: MEROPENEM 1 GM in NORMAL SALINE 100 ML IV SCH ×2 (02:59→15:37)
[2017-06-29] MEDS: ALBUTEROL SULFATE/IPRATROPIUM 3 ML NEBU IH SCH ×3 (06:09→18:18)
[2017-06-29] MEDS: GABAPENTIN 300 MG CAPSULE PO SCH ×3 (07:09→20:31)
[2017-06-29] MEDS: LEVOTHYROXINE SODIUM 50 MCG TABLET PO SCH (07:09)
[2017-06-29] MEDS: PANTOPRAZOLE SODIUM 20 MG TABLET.DR PO SCH (07:10)
[2017-06-29] MEDS: MORPHINE SULFATE 15 MG TABLET.SA PO SCH (09:20)
[2017-06-29] MEDS: busPIRone HCL 5 MG TABLET PO SCH ×2 (09:23→20:31)
[2017-06-29] MEDS: METOPROLOL TARTRATE 25 MG TABLET PO SCH ×2 (09:23→20:33)
[2017-06-29] MEDS: ACETAMINOPHEN 500 MG TABLET PO PRN ×2 (09:23→15:32)
[2017-06-29] MEDS: PRENATAL VITS96/IRON FUM/FOLIC 1 TAB TABLET PO SCH (09:23)
[2017-06-29] MEDS: FLUTICASONE/SALMETEROL 14 PUFF DISK.W.DEV IH SCH ×2 (09:23→20:30)
[2017-06-29] MEDS: THIAMINE HCL 100 MG TABLET PO SCH (09:23)
[2017-06-29] MEDS: SACCHAROMYCES BOULARDII 250 MG CAPSULE PO SCH ×2 (09:23→20:31)
[2017-06-29] MEDS: FLUoxetine HCL 20 MG CAPSULE PO SCH (09:24)
[2017-06-29] MEDS: AZITHROMYCIN 250 MG TABLET PO SCH (09:24)
[2017-06-29] MEDS: LISINOPRIL 20 MG TABLET PO SCH (09:24)
[2017-06-29] MEDS: ENOXAPARIN SODIUM 40 MG/0.4 ML SYRG SC SCH (12:15)
--- NOTE | 2017-06-29 14:07 | PN ---
Subjective - Date and Time Seen Date: 06/29/17 Time: 14:01 Subjective Narrative: States she feels fine. Nursing was concerned that maybe the narcotics were making her too sleepy so they held dose this am. Her pain appears well controlled. Objective - Review of Systems Generalized/Overall Review: Reports: Weakness. Denies: Chills, Fever EENTM: Reports: No Symptoms Reported Respiratory: Reports: Cough. Denies: Shortness of Breath Cardiac: Reports: Chest Pain Abdominal: Denies: Nausea, Vomiting Genitourinary Symptoms: Reports: No Symptoms Reported Musculoskeletal Complaints: Reports: Joint Pain - knee if feeling ok Neurological: Reports: No Symptoms Reported Skin: Reports: No Symptoms Reported Endocrine: Reports: No Symptoms Reported - Vitals Vitals: Last Vital Signs Temp 36.4 C L 06/29/17 10:10 Pulse 65 06/29/17 13:00 Resp 20 06/29/17 13:00 BP 139/88 06/29/17 10:10 Pulse Ox 92 06/29/17 13:44 - Exam Constitutional: Present: Alert, Oriented x3, Cooperative, No distress ENT Exam: Present: hearing grossly normal Neck: Present: supple Respiratory: Present: no respiratory distress, no accessory muscle use, rales - RLL Cardiovascular/Chest: Present: regular rate, rhythm, no gallop Abdomen: Present: Normal bowel sounds, soft, nontender, no rebound tenderness Extremity: Present: no pedal edema, no calf tenderness Skin Exam: Present: normal color Neurologic: Present: normal mood/affect, oriented x 3 Appearance: Present: appropriate appearance, appropriate insight, neat Eye contact: Present: cooperative, good eye contact, normal speech Thoughts: Present: normal thought pattern, no apparent hallucination Cauti Physician Documentation - Urinary Catheter Management Uretheral (Leyva) Urethral Indwelling: No Date of Insertion: 06/23/17 Time of Insertion: 10:35 Date of Removal: 06/24/17 Time of Removal: 07:24 Assessment/Plan - Problems/Diagnosis (1) RT midlung and lingular pneumonia Problem: Acute Narrative: HAP - though possible this could have happened prior to admission given her EtOH abuse. Still, current tx appears to be working so will keep meds unchanged. (2) Acute blood loss anemia Problem: Acute Narrative: vitals appear stable. will recheck CBC in am for this and pneumonia. (3) Hypoxemia Problem: Acute Narrative: O2 to keep sats > 90% < 95% (4) S/P total knee arthroplasty Problem: Acute Qualifiers: Laterality: right Qualified Code(s): Z96.651 - Presence of right artificial knee joint (5) COPD (chronic obstructive pulmonary disease) Problem: Chronic Narrative: stable no med changes at this time. (6) Hypertension Problem: Chronic (7) Discharge planning issues Problem: Acute Narrative: anticipate her being here at least a couple more days.
[2017-06-29] MEDS: NICOTINE 14 MG PATC TD SCH (15:36)
--- NOTE | 2017-06-29 17:40 | PN ---
Subjective - Date and Time Seen Date: 06/29/17 Time: 17:37 Subjective Narrative: Subjective: She denies uncontrolled pain after decreasing pain meds. I working on home O2 arrangements. Was able to walk in the cadet with therapy. Tolerating by mouth intake. Denies any nausea or vomiting. Denies calf pain. Physical exam: Alert and oriented to person, place and time Right lower Extremity: Dressings clean and dry. Able to flex and extend ankle and toes. No excessive drainage. wound benign Assessment: Postop day 4 status post right total knee arthroplasty. Plan: Continue with physical and occupational therapy weightbearing as tolerated. Continue with anticoagulation. I appreciate the assistance with IM assisting in medical management of alcohol withdrawal, and medical issues - CXR concerning for pneumonia. Pain control with goal to rely on oral medications. Continue bowel regimen. Will need 6 weeks with walker or assitive device to protect joint while ambulating during the recovery process. Discharge planning -she needs to be set up for home oxygen. If she is medically stable and arranged for home oxygen, she can be discharged to home with home health. Objective - Vitals Vitals: Last Vital Signs Temp 36.4 C L 06/29/17 14:54 Pulse 78 06/29/17 14:54 Resp 20 06/29/17 14:54 BP 131/84 06/29/17 14:54 Pulse Ox 90 06/29/17 14:54 Cauti Physician Documentation - Urinary Catheter Management Uretheral (Leyva) Urethral Indwelling: No Date of Insertion: 06/23/17 Time of Insertion: 10:35 Date of Removal: 06/24/17 Time of Removal: 07:24 Assessment/Plan - Problems/Diagnosis (1) Acute blood loss anemia Problem: Acute (2) Hypoxemia Problem: Acute (3) S/P total knee arthroplasty Problem: Acute Qualifiers: Laterality: right Qualified Code(s): Z96.651 - Presence of right artificial knee joint (4) COPD (chronic obstructive pulmonary disease) Problem: Chronic (5) Hypertension Problem: Chronic (6) Tobacco abuse Problem: Chronic (7) Anxiety Problem: Chronic (8) Bipolar 1 disorder Problem: Chronic (9) Hepatitis C Problem: Chronic (10) Urinary retention Problem: Resolved (11) Nicotine dependence Problem: Chronic Qualifiers: Nicotine product type: cigarettes (12) Alcohol dependence Problem: Chronic (13) Alcohol withdrawal Problem: Acute Qualifiers: Complication of substance-induced condition: with perceptual disturbance Qualified Code(s): F10.232 - 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
[2017-06-29] MEDS: MULTIVIT INFUSN,ADULT 4,VIT K 10 ML, THIAMINE HCL 100 MG in NORMAL SALINE 1,000 ML IV SCH (18:03)
[2017-06-29] MEDS: oxyCODONE HCL 5 MG TABLET PO PRN (19:51)
[2017-06-29] MEDS: QUEtiapine FUMARATE 100 MG, QUEtiapine FUMARATE 50 MG PO SCH ×2 (20:31)
[2017-06-29] MEDS: SENNOSIDES/DOCUSATE SODIUM 1 TAB TABLET PO SCH (20:32)
[2017-06-30] MEDS: MEROPENEM 1 GM in NORMAL SALINE 100 ML IV SCH ×2 (03:08→15:44)
[2017-06-30 05:12] LABS: Hematocrit 25.1 % (37.0-47.0); Hemoglobin 8.5 gm/dL (12.5-16.0); Mean Cell Volume 93.7 fl (78-100); Mean Corpuscular Hemoglobin 31.7 pg (27-31); Mean Corpuscular Hgb Conc 33.9 g/dl (32-36); Mean Platelet Volume 9.4 fl (6.0-9.5); Neutrophil # 3.2 K/mm3 (1.3-6.0); Neutrophil % 66.7 % (42-75.0); Platelet Count 180 K/mm3 (150-450); Red Blood Count 2.68 M/mm3 (4.2-5.4); Red Cell Distribution Width 13.6 % (11.5-14.0); White Blood Count 4.8 K/mm3 (4.0-10.5)
[2017-06-30 05:27] LABS: Albumin * 2.1 gm/dl (3.4-5.0); Anion Gap 11.5 mmol/L (6.8-13.8); BUN/Creatinine Ratio 14.8 (9.0-21.6); Bilirubin, Total 0.7 mg/dL (0.0-1.1); Ca. Corrected For Albumin 10.1 mg/dL (8.4-10.2); Calcium * 8.9 mg/dL (7.9-10.9); Carbon Dioxide 28.5 mmol/L (24-32.6); Total Protein 5.8 gm/dL (6.2-8.2)
[2017-06-30] MEDS: ALBUTEROL SULFATE/IPRATROPIUM 3 ML NEBU IH SCH ×3 (06:28→18:15)
[2017-06-30] MEDS: oxyCODONE HCL 5 MG TABLET PO PRN ×4 (07:04→20:41)
[2017-06-30] MEDS: GABAPENTIN 300 MG CAPSULE PO SCH ×3 (07:14→20:34)
[2017-06-30] MEDS: LEVOTHYROXINE SODIUM 50 MCG TABLET PO SCH (07:15)
[2017-06-30] MEDS: PANTOPRAZOLE SODIUM 20 MG TABLET.DR PO SCH (07:15)
[2017-06-30] MEDS: FLUTICASONE/SALMETEROL 14 PUFF DISK.W.DEV IH SCH ×2 (08:54→20:33)
[2017-06-30] MEDS: busPIRone HCL 5 MG TABLET PO SCH ×2 (08:55→20:34)
[2017-06-30] MEDS: METOPROLOL TARTRATE 25 MG TABLET PO SCH ×2 (08:55→20:36)
[2017-06-30] MEDS: SACCHAROMYCES BOULARDII 250 MG CAPSULE PO SCH ×2 (08:55→20:34)
[2017-06-30] MEDS: LISINOPRIL 20 MG TABLET PO SCH (08:57)
[2017-06-30] MEDS: FLUoxetine HCL 20 MG CAPSULE PO SCH (08:57)
[2017-06-30] MEDS: PRENATAL VITS96/IRON FUM/FOLIC 1 TAB TABLET PO SCH (08:57)
[2017-06-30] MEDS: THIAMINE HCL 100 MG TABLET PO SCH (08:57)
[2017-06-30] MEDS: AZITHROMYCIN 250 MG TABLET PO SCH (08:58)
[2017-06-30] MEDS: ENOXAPARIN SODIUM 40 MG/0.4 ML SYRG SC SCH (11:08)
--- NOTE | 2017-06-30 11:38 | PN ---
Subjective - Date and Time Seen Date: 06/30/17 Time: 11:35 Subjective Narrative: States she feels fine. Cough has improved. Pain is well controlled. Objective - Review of Systems Generalized/Overall Review: Reports: No Symptoms Reported EENTM: Reports: No Symptoms Reported Respiratory: Reports: Cough Cardiac: Reports: No Symptoms Reported Abdominal: Reports: No Symptoms Reported Genitourinary Symptoms: Reports: No Symptoms Reported Musculoskeletal Complaints: Reports: Joint Pain Neurological: Reports: No Symptoms Reported Skin: Reports: No Symptoms Reported Endocrine: Reports: No Symptoms Reported - Vitals Vitals: Last Vital Signs Temp 36.3 C L 06/30/17 10:46 Pulse 82 06/30/17 10:46 Resp 18 06/30/17 10:46 BP 133/75 06/30/17 10:46 Pulse Ox 97 06/30/17 10:46 - Abnormal Lab Findings Abnormal Lab Findings: Abnormal Lab Results 06/30/17 06/30/17 Range/Units 05:05 05:05 RBC 2.68 L (4.2-5.4) M/mm3 Hgb 8.5 L (12.5-16.0) gm/dL Hct 25.1 L (37.0-47.0) % MCH 31.7 H (27-31) pg Immature Gran % (Auto) 0.80 H (0.001-0.429) % Immature Gran # (Auto) 0.04 H (0.000-0.0310) K/mm3 Lymphocytes % 16.8 L (20-51) % Monocytes % 10.7 H (0.0-9) % Eosinophils % 4.8 H (0.0-3.0) % Lymphocytes # 0.8 L (1.5-3.5) k/mm3 Potassium 3.0 L (3.4-4.6) mmol/L Total Protein 5.8 L (6.2-8.2) gm/dL Albumin 2.1 L (3.4-5.0) gm/dl - Exam Constitutional: Present: Alert, Oriented x3, Cooperative, No distress ENT Exam: Present: hearing grossly normal Neck: Present: supple Respiratory: Present: no respiratory distress, no accessory muscle use, rales - right base Cardiovascular/Chest: Present: regular rate, rhythm, no murmur Abdomen: Present: Normal bowel sounds, soft, nontender, nondistended, no rebound tenderness, no hepatospenomegaly Extremity: Present: no calf tenderness Skin Exam: Present: normal color Neurologic: Present: normal mood/affect, oriented x 3 Appearance: Present: appropriate appearance, appropriate insight, neat Eye contact: Present: cooperative, good eye contact, normal speech Thoughts: Present: normal thought pattern, no apparent hallucination Cauti Physician Documentation - Urinary Catheter Management Uretheral (Leyva) Urethral Indwelling: No Date of Insertion: 06/23/17 Time of Insertion: 10:35 Date of Removal: 06/24/17 Time of Removal: 07:24 Assessment/Plan - Problems/Diagnosis (1) RT midlung and lingular pneumonia Problem: Acute Narrative: continue zithromax and cefempime. appears to be doing well with this. (2) Acute blood loss anemia Problem: Acute Narrative: is stable. follow for now. (3) Hypoxemia Problem: Acute Narrative: resolved. (4) S/P total knee arthroplasty Problem: Acute Qualifiers: Laterality: right Qualified Code(s): Z96.651 - Presence of right artificial knee joint Narrative: rehab per ortho (5) COPD (chronic obstructive pulmonary disease) Problem: Chronic Narrative: stable continue nebs prn and scheduled. (6) Hypertension Problem: Chronic Narrative: stable (7) Discharge planning issues Problem: Acute Narrative: consider change to po meds and see how she does, but with HAP may need to be here for duration of Abx tx.
[2017-06-30] MEDS: POTASSIUM CHLORIDE 10 MEQ TABLET.SA PO SCH ×2 (12:13→16:39)
[2017-06-30] MEDS: ALBUTEROL SULFATE 2.5 MG/0.5 ML VIAL.NEB IH PRN (13:26)
[2017-06-30] MEDS: NICOTINE 14 MG PATC TD SCH (15:45)
--- NOTE | 2017-06-30 16:42 | PN ---
Subjective - Date and Time Seen Date: 06/30/17 Time: 16:41 Subjective Narrative: Subjective: She states she is feeling much better today. I working on home O2 arrangements and antibiotic regimen.. Was able to walk in the [place] with therapy. Tolerating by mouth intake. Denies any nausea or vomiting. Denies calf pain. Physical exam: Alert and oriented to person, place and time Right lower Extremity: Dressings clean and dry. Able to flex and extend ankle and toes. No excessive drainage. wound benign Assessment: Postop day 5 status post right total knee arthroplasty. Plan: Continue with physical and occupational therapy weightbearing as tolerated. Continue with anticoagulation. I appreciate the assistance with IM assisting in medical management of alcohol withdrawal, and medical issues - CXR concerning for pneumonia. Pain control with goal to rely on oral medications. Continue bowel regimen. Will need 6 weeks with walker or assitive device to protect joint while ambulating during the recovery process. Discharge planning -she needs to be set up for home oxygen. If she is medically stable and arranged for home oxygen, she can be discharged to home with home health. Objective - Vitals Vitals: Last Vital Signs Temp 36.7 C 06/30/17 15:10 Pulse 86 06/30/17 15:10 Resp 20 06/30/17 15:10 BP 136/90 06/30/17 16:22 Pulse Ox 93 06/30/17 15:10 - Abnormal Lab Findings Abnormal Lab Findings: Abnormal Lab Results 06/30/17 06/30/17 Range/Units 05:05 05:05 RBC 2.68 L (4.2-5.4) M/mm3 Hgb 8.5 L (12.5-16.0) gm/dL Hct 25.1 L (37.0-47.0) % MCH 31.7 H (27-31) pg Immature Gran % (Auto) 0.80 H (0.001-0.429) % Immature Gran # (Auto) 0.04 H (0.000-0.0310) K/mm3 Lymphocytes % 16.8 L (20-51) % Monocytes % 10.7 H (0.0-9) % Eosinophils % 4.8 H (0.0-3.0) % Lymphocytes # 0.8 L (1.5-3.5) k/mm3 Potassium 3.0 L (3.4-4.6) mmol/L Total Protein 5.8 L (6.2-8.2) gm/dL Albumin 2.1 L (3.4-5.0) gm/dl Cauti Physician Documentation - Urinary Catheter Management Uretheral (Leyva) Urethral Indwelling: No Date of Insertion: 06/23/17 Time of Insertion: 10:35 Date of Removal: 06/24/17 Time of Removal: 07:24 Assessment/Plan - Problems/Diagnosis (1) Acute blood loss anemia Problem: Acute (2) Hypoxemia Problem: Acute (3) S/P total knee arthroplasty Problem: Acute Qualifiers: Laterality: right Qualified Code(s): Z96.651 - Presence of right artificial knee joint (4) COPD (chronic obstructive pulmonary disease) Problem: Chronic (5) Hypertension Problem: Chronic (6) Tobacco abuse Problem: Chronic (7) Anxiety Problem: Chronic (8) Bipolar 1 disorder Problem: Chronic (9) Hepatitis C Problem: Chronic (10) Urinary retention Problem: Resolved (11) Nicotine dependence Problem: Chronic Qualifiers: Nicotine product type: cigarettes (12) Alcohol dependence Problem: Chronic (13) Alcohol withdrawal Problem: Acute Qualifiers: Complication of substance-induced condition: with perceptual disturbance Qualified Code(s): F10.232 - 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
[2017-06-30] MEDS: SENNOSIDES/DOCUSATE SODIUM 1 TAB TABLET PO SCH (20:35)
[2017-06-30] MEDS: QUEtiapine FUMARATE 100 MG, QUEtiapine FUMARATE 50 MG PO SCH ×2 (20:35)
[2017-07-01] MEDS: MEROPENEM 1 GM in NORMAL SALINE 100 ML IV SCH ×2 (03:52→14:52)
[2017-07-01 06:11] LABS: BUN/Creatinine Ratio 14.3 (9.0-21.6); Calcium * 8.8 mg/dL (7.9-10.9); Carbon Dioxide 28.2 mmol/L (24-32.6); Estimated Creat Clear 94.5; Potassium 4.2 mmol/L (3.4-4.6)
[2017-07-01] MEDS: ALBUTEROL SULFATE/IPRATROPIUM 3 ML NEBU IH SCH ×3 (06:11→18:21)
[2017-07-01] MEDS: GABAPENTIN 300 MG CAPSULE PO SCH ×3 (06:40→21:03)
[2017-07-01] MEDS: oxyCODONE HCL 5 MG TABLET PO PRN ×4 (06:40→21:07)
[2017-07-01] MEDS: LEVOTHYROXINE SODIUM 50 MCG TABLET PO SCH (06:41)
[2017-07-01] MEDS: PANTOPRAZOLE SODIUM 20 MG TABLET.DR PO SCH (06:41)
[2017-07-01] MEDS: FLUoxetine HCL 20 MG CAPSULE PO SCH (08:37)
[2017-07-01] MEDS: FLUTICASONE/SALMETEROL 14 PUFF DISK.W.DEV IH SCH ×2 (08:37→21:02)
[2017-07-01] MEDS: busPIRone HCL 5 MG TABLET PO SCH ×2 (08:37→21:03)
[2017-07-01] MEDS: PRENATAL VITS96/IRON FUM/FOLIC 1 TAB TABLET PO SCH (08:37)
[2017-07-01] MEDS: LISINOPRIL 20 MG TABLET PO SCH (08:37)
[2017-07-01] MEDS: METOPROLOL TARTRATE 25 MG TABLET PO SCH ×2 (08:37→21:04)
[2017-07-01] MEDS: AZITHROMYCIN 250 MG TABLET PO SCH (08:37)
[2017-07-01] MEDS: POTASSIUM CHLORIDE 10 MEQ TABLET.SA PO SCH ×2 (08:37→17:30)
[2017-07-01] MEDS: SACCHAROMYCES BOULARDII 250 MG CAPSULE PO SCH ×2 (08:37→21:03)
[2017-07-01] MEDS: THIAMINE HCL 100 MG TABLET PO SCH (08:38)
--- NOTE | 2017-07-01 08:41 | PN ---
Subjective - Date and Time Seen Date: 07/01/17 Time: 08:33 Subjective Narrative: Patient feels she is still very congested. Has been off oxygen for the last two days. Objective - Review of Systems Generalized/Overall Review: Denies: Chills, Fever Respiratory: Reports: Cough Abdominal: Denies: Nausea, Vomiting Genitourinary Symptoms: Denies: Urgency, Frequency - Vitals Vitals: Last Vital Signs Temp 36.6 C 07/01/17 06:38 Pulse 78 07/01/17 06:38 Resp 18 07/01/17 06:38 BP 141/86 07/01/17 06:38 Pulse Ox 92 07/01/17 06:38 - Exam Constitutional: Present: Alert, Oriented x3, Cooperative ENT Exam: Present: hearing grossly normal Respiratory: Present: rales, rhonchi Cardiovascular/Chest: Present: regular rate, rhythm, no JVD, no murmur Abdomen: Present: soft, nontender Extremity: Present: no pedal edema Cauti Physician Documentation - Urinary Catheter Management Uretheral (Leyva) Urethral Indwelling: No Date of Insertion: 06/23/17 Time of Insertion: 10:35 Date of Removal: 06/24/17 Time of Removal: 07:24 Assessment/Plan - Problems/Diagnosis (1) S/P total knee arthroplasty Problem: Acute Qualifiers: Laterality: right Qualified Code(s): Z96.651 - Presence of right artificial knee joint Narrative: On PT and OT. Ambulating in hallway. (2) Alcohol dependence Problem: Chronic (3) COPD (chronic obstructive pulmonary disease) Problem: Chronic Narrative: Continue inhaler and bronchodilators. (4) Bipolar 1 disorder Problem: Chronic (5) Tobacco abuse Problem: Chronic Narrative: Continue nicotine patch. Wants to quit smoking. (6) Alcohol withdrawal Problem: Resolved Qualifiers: Complication of substance-induced condition: with perceptual disturbance Qualified Code(s): F10.232 - Alcohol dependence with withdrawal with perceptual disturbance (7) Pneumonia Problem: Acute Qualifiers: Laterality: right Lung location: lower lobe of lung Narrative: Hospital acquired pneumonia. Likely aspiration. On day 5 ov IV Meropenem and azithromycin. Plan for discharge tomorrow on oral levaquin 750 mg PO QD x5 days .
--- NOTE | 2017-07-01 08:47 | PN ---
Subjective - Date and Time Seen Date: 07/01/17 Time: 08:45 Subjective Narrative: Subjective: Stable, off Oxygen. Improving with ambulation and activity. Physical exam: Alert and oriented to person, place and time Right lower Extremity: Dressings clean and dry. Able to flex and extend ankle and toes. No excessive drainage. wound benign Assessment: Postop day 8 status post right total knee arthroplasty. Plan: Continue with physical and occupational therapy weightbearing as tolerated. Continue with anticoagulation. I appreciate the assistance with IM assisting in medical management of alcohol withdrawal, and medical issues - CXR concerning for pneumonia. Pain control with goal to rely on oral medications. Continue bowel regimen. Will need 6 weeks with walker or assitive device to protect joint while ambulating during the recovery process. Discharge planning -IM recs another day of IV antibiotics and goal for DC home tomorrow. When she is medically stable, she can be discharged to home with home health. Objective - Vitals Vitals: Last Vital Signs Temp 36.6 C 07/01/17 06:38 Pulse 78 07/01/17 08:37 Resp 18 07/01/17 06:38 BP 141/86 07/01/17 08:37 Pulse Ox 92 07/01/17 06:38 Cauti Physician Documentation - Urinary Catheter Management Uretheral (Leyva) Urethral Indwelling: No Date of Insertion: 06/23/17 Time of Insertion: 10:35 Date of Removal: 06/24/17 Time of Removal: 07:24 Assessment/Plan - Problems/Diagnosis (1) Acute blood loss anemia Problem: Acute (2) Hypoxemia Problem: Acute (3) S/P total knee arthroplasty Problem: Acute Qualifiers: Laterality: right Qualified Code(s): Z96.651 - Presence of right artificial knee joint (4) COPD (chronic obstructive pulmonary disease) Problem: Chronic (5) Hypertension Problem: Chronic (6) Tobacco abuse Problem: Chronic (7) Anxiety Problem: Chronic (8) Bipolar 1 disorder Problem: Chronic (9) Hepatitis C Problem: Chronic (10) Urinary retention Problem: Resolved (11) Nicotine dependence Problem: Chronic Qualifiers: Nicotine product type: cigarettes (12) Alcohol dependence Problem: Chronic (13) Alcohol withdrawal Problem: Resolved Qualifiers: Complication of substance-induced condition: with perceptual disturbance Qualified Code(s): F10.232 - Alcohol dependence with withdrawal with perceptual disturbance
[2017-07-01] MEDS: ENOXAPARIN SODIUM 40 MG/0.4 ML SYRG SC SCH (10:46)
[2017-07-01] MEDS: ALBUTEROL SULFATE 2.5 MG/0.5 ML VIAL.NEB IH PRN (13:11)
[2017-07-01] MEDS: NICOTINE 14 MG PATC TD SCH (14:52)
[2017-07-01] MEDS: QUEtiapine FUMARATE 100 MG, QUEtiapine FUMARATE 50 MG PO SCH ×2 (21:02)
[2017-07-01] MEDS: SENNOSIDES/DOCUSATE SODIUM 1 TAB TABLET PO SCH (21:03)
[2017-07-02] MEDS: MEROPENEM 1 GM in NORMAL SALINE 100 ML IV SCH (03:18)
[2017-07-02] MEDS: ALBUTEROL SULFATE/IPRATROPIUM 3 ML NEBU IH SCH ×2 (06:11→13:50)
[2017-07-02] MEDS: oxyCODONE HCL 5 MG TABLET PO PRN ×2 (07:00→12:39)
[2017-07-02] MEDS: GABAPENTIN 300 MG CAPSULE PO SCH (07:01)
[2017-07-02] MEDS: PANTOPRAZOLE SODIUM 20 MG TABLET.DR PO SCH (07:02)
[2017-07-02] MEDS: LEVOTHYROXINE SODIUM 50 MCG TABLET PO SCH (07:02)
[2017-07-02 07:42] VITALS: BP 149/94
--- NOTE | 2017-07-02 07:59 | PN ---
Subjective - Date and Time Seen Date: 07/02/17 Time: 07:54 Subjective Narrative: Patient is feeling better today. She was encouraged to stop her alcohol and smoking habit and talk with her PCP. [facility]. Objective - Review of Systems Generalized/Overall Review: Denies: Chills, Fever EENTM: Reports: No Symptoms Reported Respiratory: Reports: Cough, Shortness of Breath Cardiac: Denies: Chest Pain, Palpitations Abdominal: Denies: Nausea, Vomiting Genitourinary Symptoms: Denies: Urgency, Frequency Musculoskeletal Complaints: Reports: Joint Pain - Vitals Vitals: Last Vital Signs Temp 36.8 C 07/02/17 07:40 Pulse 77 07/02/17 07:40 Resp 18 07/02/17 07:40 BP 149/94 07/02/17 07:40 Pulse Ox 92 07/02/17 07:40 - Exam Constitutional: Present: Alert, Oriented x3, Cooperative ENT Exam: Present: hearing grossly normal Neck: Present: supple Respiratory: Present: decreased breath sounds, crackles - occasional, No wheezing Cardiovascular/Chest: Present: regular rate, rhythm, no JVD, no murmur Abdomen: Present: Normal bowel sounds, soft, nontender, nondistended Extremity: Present: no pedal edema, no calf tenderness Cauti Physician Documentation - Urinary Catheter Management Uretheral (Leyva) Urethral Indwelling: No Date of Insertion: 06/23/17 Time of Insertion: 10:35 Date of Removal: 06/24/17 Time of Removal: 07:24 Assessment/Plan - Problems/Diagnosis (1) Pneumonia Problem: Acute Qualifiers: Laterality: right Lung location: lower lobe of lung Narrative: hospital acquired pneumonia, like aspiration. Continue Oral levaquin at 750 mg PO qd x 5 days. (2) S/P total knee arthroplasty Problem: Acute Qualifiers: Laterality: right Qualified Code(s): Z96.651 - Presence of right artificial knee joint (3) Alcohol dependence Problem: Chronic (4) COPD (chronic obstructive pulmonary disease) Problem: Chronic (5) Bipolar 1 disorder Problem: Chronic (6) Tobacco abuse Problem: Chronic (7) Alcohol withdrawal Problem: Resolved Qualifiers: Complication of substance-induced condition: with perceptual disturbance Qualified Code(s): F10.232 - Alcohol dependence with withdrawal with perceptual disturbance
[2017-07-02] MEDS: FLUTICASONE/SALMETEROL 14 PUFF DISK.W.DEV IH SCH (08:55)
[2017-07-02] MEDS: SACCHAROMYCES BOULARDII 250 MG CAPSULE PO SCH (08:55)
[2017-07-02] MEDS: busPIRone HCL 5 MG TABLET PO SCH (08:55)
[2017-07-02] MEDS: POTASSIUM CHLORIDE 10 MEQ TABLET.SA PO SCH (08:56)
[2017-07-02] MEDS: PRENATAL VITS96/IRON FUM/FOLIC 1 TAB TABLET PO SCH (08:56)
[2017-07-02] MEDS: FLUoxetine HCL 20 MG CAPSULE PO SCH (08:56)
[2017-07-02] MEDS: THIAMINE HCL 100 MG TABLET PO SCH (08:56)
[2017-07-02] MEDS: LISINOPRIL 20 MG TABLET PO SCH (08:56)
[2017-07-02] MEDS: METOPROLOL TARTRATE 25 MG TABLET PO SCH (08:56)
--- NOTE | 2017-07-02 09:31 | DS ---
(1) Acute blood loss anemia Problem: Acute (2) Hypoxemia Problem: Acute (3) S/P total knee arthroplasty Problem: Acute Qualifiers: Laterality: right Qualified Code(s): Z96.651 - Presence of right artificial knee joint (4) COPD (chronic obstructive pulmonary disease) Problem: Chronic (5) Hypertension Problem: Chronic (6) Tobacco abuse Problem: Chronic (7) Anxiety Problem: Chronic (8) Bipolar 1 disorder Problem: Chronic (9) Hepatitis C Problem: Chronic (10) Urinary retention Problem: Resolved (11) Nicotine dependence Problem: Chronic Qualifiers: Nicotine product type: cigarettes (12) Alcohol dependence Problem: Chronic (13) Alcohol withdrawal Problem: Resolved Qualifiers: Complication of substance-induced condition: with perceptual disturbance Qualified Code(s): F10.232 - Alcohol dependence with withdrawal with perceptual disturbance (14) Pneumonia Problem: Acute Qualifiers: Laterality: right Lung location: lower lobe of lung Description of Stay: Mrs. Bee was admitted to the floor after undergoing right total knee arthroplasty. Tolerated this well. Was admitted to the floor postoperatively for 24 hours of IV antibiotics, pain control, medical comanagement, and occupational and physical therapy. OT and PT were consulted to assist with activities of daily living and ambulation. Was made weightbearing as tolerated with range of motion as tolerated. Pain was initially controlled with IV regimen. This was transitioned to oral once tolerating a by mouth intake. She was noted to have some urinary retention which improved with fluids and time. She did require a straight catheterization in order to into her bladder initially. She then developed some confusion and it was concerning that she was undergoing alcohol withdrawal so she was placed on the alcohol withdrawal protocol and once she made it through 48-72 hours she started to improve mentally. She also had some hypoxemia and a notable cough which was present on admission and continued to progress through the hospitalization and the chest x- ray revealed possible pneumonia for which she was treated with IV and subsequently oral antibiotics with significant improvement in her oxygenation as well as her cough. Infection workup was otherwise negative with regards to cultures. Was resumed on home diet and medications. Had a Leyva catheter inserted and the operating room which was discontinued on postoperative day 1. A drain was placed intraoperatively into the knee which was discontinued on postoperative day 1. Lovenox SCD and PACO hose were utilized for DVT prophylaxis. Vital signs remained stable to the hospital course. Serial labs were obtained which showed a final hemoglobin of 8.5 grams. BMP was reviewed and was stable. She did have a single day of hypokalemia which resolved with oral potassium replacement. Physical examination throughout the hospital course showed an extremity that had sensation that was intact to light touch, palpable pulses, a benign wound, motor intact to the toes, ankle, and knee. Knee range of motion was approximately 0 degrees to 70 degrees. Once an oral pain regimen was tolerated and physical therapy goals were met, it was felt that they were stable for discharge to home. Instructions: Continue with weightbearing as tolerated and range of motion as tolerated. It is okay to shower and get the wound wet as long as there is no drainage from the wound. Do not bathe or soak the wound. If there is any drainage from the wound keep the wound clean and dry and cover with dry gauze and tape. Change every 2-3 days as needed if there is any drainage. Cover wound while showering if there is any drainage. Continue with physical therapy. Resume home diet. Report any fever over 101.5 Fahrenheit, uncontrolled pain, increased drainage, foul odor of drainage, new or increased calf pain or shortness of breath, or any other significant complaints. A 325mg dialy aspirin will be started after finishing anticoagulation if not allergic. Continue with PACO hose on the operative extremity until instructed otherwise. No driving until instructed otherwise. Follow up in approximately 10-14 days. Procedures Performed: see notes below List Procedures: Right total knee arthroplasty, chest x-ray Discharge Disposition: Home self care Disposition: Home self-care Condition: Good Discharge Activity: Activity as tolerated, Weight bearing Discharge Diet: General/regular food Referrals: Paddy Seth MD [Primary Care Provider] - Additional Patient Instructions (free text): Follow-up in the office with Dr. Mays on Friday07/08/17 at 9:30am. Resume [facility] at discharge. [facility] as needed and Physical Therapy. Please fax discharge information to [phone] ([employer]) Pt's nurse at home is Alejandra Sethi at [phone]. Prescriptions (Any new or edited meds): Levofloxacin [Levaquin] 750 mg PO DAILY #5 tablet oxyCODONE HCL [Oxycodone] 10 mg PO Q4H PRN #60 tablet PRN Reason: Severe Pain Complete Home Medications List: Complete Home Medication List: Albuterol Sulfate [Ventolin Hfa] 2 puff IH Q4H PRN 08/09/15 Budesonide/Formoterol Fumarate [Symbicort 160-4.5 Mcg Inhaler] 2 puff IH BID Levothyroxine Sodium [Synthroid] 50 mcg PO DAILY 08/09/15 Oxybutynin Chloride [Ditropan] 5 mg PO BID 08/09/15 amLODIPine BESYLATE [Norvasc] 5 mg PO DAILY 08/09/15 Sennosides/Docusate Sodium [Senokot-S] 2 tab PO HS #60 tablet 08/25/15 Albuterol Sulfate [Albuterol Sulfate 2.5 MG/0.5ML] 1 vial IH TID PRN 11/06/16 Lisinopril [Prinivil] 20 mg PO BID 06/19/17 Metoprolol Tartrate [Lopressor] 50 mg PO BID 06/19/17 Vits96/Iron Fum/Folic [ S] 1 tab PO DAILY 06/19/17 QUEtiapine FUMARATE [Seroquel] 150 mg PO HS 06/19/17 Buspirone HCl 15 mg PO BID 06/20/17 FLUoxetine HCL [Prozac] 40 mg PO DAILY 06/20/17 Gabapentin [Neurontin] 900 mg PO TID 06/20/17 Meloxicam [Mobic] 15 mg PO DAILY 06/20/17 Omeprazole [Prilosec] 20 mg PO DAILY 06/20/17 Thiamine HCl [B-1] 100 mg PO DAILY 06/20/17 hydrOXYzine PAMOATE [Vistaril] 25 mg PO Q8H PRN 06/20/17 Levofloxacin [Levaquin] 750 mg PO DAILY #5 tablet 07/02/17 Potassium Chloride [Klor-Con 10] 30 meq PO BIDWM tablet.sa 07/02/17 Sennosides/Docusate Sodium [Senokot-S] 2 tab PO HS tablet 07/02/17 oxyCODONE HCL [Oxycodone] 10 mg PO Q4H PRN #60 tablet 07/02/17 Amb Orders for Discharge: PT Evaluation and Treatment Facility: [facility], Location: Rehabilitation Services
[2017-07-02] MEDS: ENOXAPARIN SODIUM 40 MG/0.4 ML SYRG SC SCH (12:33)
== END 2017-07-02 14:14 | disposition home health service (06) | DRG 469 ==
LOC: MS 07:54
PROVIDERS: ADMIT Orthopaedic Surgery; ATTEND Orthopaedic Surgery
PROC: 0SRC0J9 Replacement of Right Knee Joint with Synthetic Substitute, Cemented, Open Approach (ICD-10-PCS; principal; 2017-06-23 10:10)
DX: M17.0 Bilateral primary osteoarthritis of knee (principal); J18.9 Pneumonia, unspecified organism; F10.232 Alcohol dependence with withdrawal with perceptual disturbance; D62 Acute posthemorrhagic anemia; Y95 Nosocomial condition; R09.02 Hypoxemia; F10.10 Alcohol abuse, uncomplicated; I10 Essential (primary) hypertension; F17.210 Nicotine dependence, cigarettes, uncomplicated; F31.9 Bipolar disorder, unspecified; J44.9 Chronic obstructive pulmonary disease, unspecified; B18.2 Chronic viral hepatitis C